=== PATIENT | female | born 1960 | race Caucasian/White ===

== ENCOUNTER 2016-10-08 10:21 | Inpatient (IN) | payer OTHER ==
[~2016-10-08] VITALS: Ht 160 cm; Wt 181.0 kg
[2016-10-08] VITALS (10 sets, daily range): BP systolic 64–153; BP diastolic 21–122
[2016-10-08 11:33] LABS: EOSINOPHIL (%) 2.3 % (0-5); EOSINOPHIL COUNT 0.2 K/uL (0-0.3); HEMATOCRIT 26.6 % (36.0-46.0); IMMATURE GRANULOCYTE (%) 0.5 % (0.0-0.7); INSTRUMENT ABS NEUTROPHIL CT 5.6 K/uL; LYMPHOCYTE COUNT 1.1 K/uL (1.0-2.8); MCH 29.8 PG (29.0-34.0); MCHC 29.3 G/DL (30.0-36.0); MCV 101.5 FL (83-99); MEAN PLAT.VOLUME 10.7 uM^3 (9.5-12.4); MONOCYTE (%) 7.4 % (3-12); MONOCYTE COUNT 0.6 K/uL (0-0.8); NEUTROPHIL (%) 74.6 % (45-76); NEUTROPHIL COUNT 5.6 K/uL (1.8-6.4); PLATELET COUNT 127 K/uL (156-360); RBC DIS.WIDTH-CV 16.8 % (11.8-14.6); RBC DIS.WIDTH-SD 62.4 % (39-53); RED BLOOD COUNT 2.62 M/uL (3.80-5.20); WHITE BLOOD COUNT 7.5 K/uL (4.1-10.2)
[2016-10-08 11:34] LABS: CARBON DIOXIDE (BICARBONATE) 18.9 MEQ/L (20-31)
[2016-10-08 11:42] LABS: CHLORIDE 104 mEq/L (99-109); SODIUM 134 mEq/L (136-147)
[2016-10-08 11:43] LABS: MAGNESIUM 2.5 mg/dL (1.3-2.7)
[2016-10-08 11:45] LABS: GLUCOSE 99 mg/dL (70-99)
[2016-10-08 11:46] LABS: ANION GAP 15 MEQ/L (2-14)
[2016-10-08 11:47] LABS: TOTAL BILIRUBIN 0.2 mg/dL (0.0-1.0)
[2016-10-08 11:48] LABS: ALKALINE PHOSPHATASE 68 IU/L (3-129)
[2016-10-08 11:49] LABS: GFR ESTIMATE (CALCULATED) 5 mL/min/
[2016-10-08 11:57] LABS: POTASSIUM 6.7 mEq/L (3.7-5.4); TROP-I INTERPRETATION NEGATIVE; TROPONIN-I 0.02 ng/mL (0.0-0.30)
[2016-10-08 12:00] LABS: BASE EXCESS -10.4 mEq/L (-3 to +3); BICARBONATE 18.7 mEq/L (22-26); CARBOXY HGB 1.7 % (0-5); METHEMOGLOBIN 1.4 % (0-1.5); PCO2 59 mm Hg (35-45); PO2 141 mm Hg (80-100)
[2016-10-08 12:01] LABS: COMMENTS - BLOOD GASES A+C+; DEVICE 840; FI02 40 %; MODE PSV; PEEP 5 CM/H20; PRES. SUPPORT 12 CM/H2O; SITE RRA; TOTAL RESP RATE 16 resp/min; pH 7.11 (7.35-7.45)
[2016-10-08 12:01] LABS: UREA NITROGEN (BUN) 152 mg/dL (9-23)
[2016-10-08] MEDS ORDERED: LEVOTHYROXINE175 MCG PO (13:05)
[2016-10-08] MEDS ORDERED: IRON325 M1 PO (13:08)
[2016-10-08] MEDS ORDERED: MULTI-VITAMIN1 EAC4 PO (13:08)
[2016-10-08] MEDS ORDERED: HEPARIN SO5000 UNITS SC (13:09)
[2016-10-08] MEDS ORDERED: LORAZEPAM0.5 MG PO ×2 (13:09→13:17)
[2016-10-08] MEDS ORDERED: EPOGEN,PRO20000 UNIT IV (13:10)
[2016-10-08] MEDS ORDERED: ALBUTEROL2.5 MG/3 M IH (13:11)
[2016-10-08] MEDS ORDERED: ATROVENT 00.5 MG/2.5 IH (13:11)
[2016-10-08] MEDS ORDERED: METOLAZONE2.5 MG PO (13:12)
[2016-10-08] MEDS ORDERED: CITALOPRAM HBR40 MG PO (13:12)
[2016-10-08] MEDS ORDERED: RANITIDINE HCL150 MG PO (13:13)
[2016-10-08] MEDS ORDERED: KLOR-CON 1010 ME1 PO (13:13)
[2016-10-08] MEDS ORDERED: GABAPENTIN100 MG PO ×2 (13:14→13:17)
[2016-10-08] MEDS ORDERED: LASIX40 MG PO (13:14)
[2016-10-08] MEDS ORDERED: DOCUSATE SODIU100 MG PO (13:14)
[2016-10-08] MEDS ORDERED: FOLIC ACID0.4 MG PO (13:14)
[2016-10-08] MEDS ORDERED: GUAIFENESIN400 MG PO (13:15)
[2016-10-08] MEDS ORDERED: FLORANEX CHE1 TABLET PO (13:15)
[2016-10-08] MEDS ORDERED: ACETAMINOPHEN325 M1 PO (13:16)
[2016-10-08] MEDS ORDERED: COUGH SYRU100 MG/5 M PO (13:17)
[2016-10-08] MEDS ORDERED: BENADRYL25 MG PO (13:18)
[2016-10-08] MEDS ORDERED: PROMETHAZINE HC25 M1 PO (13:18)
[2016-10-08] MEDS ORDERED: MILK OF MAGN PO (13:21)
[2016-10-08] MEDS ORDERED: FLEET ENEMA-AD118 ML PR (13:22)
[2016-10-08] MEDS ORDERED: DULCOLAX10 MG PR (13:22)
[2016-10-08 15:36] LABS: BASE EXCESS -9.7 mEq/L (-3 to +3); BICARBONATE 19.6 mEq/L (22-26); CARBOXY HGB 1.7 % (0-5); COMMENTS - BLOOD GASES C+; CONTINUOUS POS AIRWAY PRESSURE 5 cm H2O; DEVICE VENT; FI02 40 %; MODE SPON; PCO2 63 mm Hg (35-45); PO2 132 mm Hg (80-100); PRES. SUPPORT 12 CM/H2O; SITE LB; TOTAL RESP RATE 17 resp/min
[2016-10-08 18:42] LABS: METH RESISTANT S AUREUS PCR POSITIVE (NEGATIVE)
[2016-10-08 18:48] LABS: PROBE CHECK PASS
[2016-10-08 19:10] LABS: IRON 46 MCG/DL (35-150)
[2016-10-08 19:11] LABS: INTACT PARATHYROID HORMONE 291 pg/mL (10-69)
[2016-10-08 19:25] LABS: POINT-OF-CARE METER ID UU13113731
[2016-10-08 19:28] LABS: FERRITIN 186 NG/ML (10-291)
[2016-10-08 21:56] LABS: BASE EXCESS -2.4 mEq/L (-3 to +3); BICARBONATE 24.4 mEq/L (22-26); COMMENTS - BLOOD GASES C+; DEVICE VENTILATOR; FI02 50 %; MECHANICAL RATE 20 resp/min; METHEMOGLOBIN 1.7 % (0-1.5); MODE AC; PCO2 52 mm Hg (35-45); PEEP 5 CM/H20; PO2 130 mm Hg (80-100); SITE A-LINE; TIDAL VOLUME 410 ML; TOTAL RESP RATE 20 resp/min; pH 7.28 (7.35-7.45)
[2016-10-08 23:49] LABS: BASE EXCESS -1.7 mEq/L (-3 to +3); BICARBONATE 23.7 mEq/L (22-26); CARBOXY HGB 2.3 % (0-5); COMMENTS - BLOOD GASES C+; DEVICE VENTILATOR; FI02 40 %; MECHANICAL RATE 24 resp/min; METHEMOGLOBIN 1.7 % (0-1.5); MODE AC; PCO2 42 mm Hg (35-45); PO2 71 mm Hg (80-100); SITE A-LINE; TOTAL RESP RATE 25 resp/min; pH 7.36 (7.35-7.45)
[2016-10-08 23:50] LABS: INSPIRATION TIME 0.7 seconds; PEEP 5 CM/H20; TIDAL VOLUME 450 ML
[2016-10-09 01:23] LABS: POINT-OF-CARE METER ID UU13113731
[2016-10-09 02:00] VITALS: BP 126/54
[2016-10-09 02:32] LABS: ADD MIUA? YES; BILIRUBIN NEGATIVE; BLOOD MODERATE; COLOR AMBER ((YELLOW)); GLUCOSE (STRIP) NEGATIVE; KETONES NEGATIVE; LEUKOCYTES LARGE; NITRITE NEGATIVE; PROTEIN (STRIP) 100; SPECIFIC GRAVITY 1.011 (1.000-1.030); UROBILINOGEN 0.2 MG/DL (0.2-1.0)
[2016-10-09 02:44] LABS: BACTERIA RARE /HPF; EPITHELIAL CELLS RARE /HPF; HYALINE CASTS 15-20 /LPF; MUCUS TRACE /LPF; UCUL ADDED? YES; UNCLASSIFIED CASTS 0-5 /LPF; WHITE BLOOD CELLS TNTC /HPF (0-5)
[2016-10-09 04:00] VITALS: BP 102/73
[2016-10-09 05:14] LABS: POINT-OF-CARE METER ID UU13113731
[2016-10-09 05:48] LABS: ANION GAP 14 MEQ/L (2-14); CHLORIDE 101 MEQ/L (99-109); SAMPLE HEMOLYSIS CHECK 0; SAMPLE ICTERIC CHECK 0; SAMPLE LIPEMIA CHECK 0; SODIUM 136 MEQ/L (136-147); UREA NITROGEN (BUN) 99 mg/dL (9-23)
[2016-10-09 05:49] LABS: GFR ESTIMATE (CALCULATED) 8 mL/min/; GLUCOSE 167 mg/dL (70-99)
[2016-10-09 06:04] LABS: EOSINOPHIL (%) 0.1 % (0-5); HEMATOCRIT 23.5 % (36.0-46.0); IMMATURE GRANULOCYTE (%) 0.7 % (0.0-0.7); IMMATURE GRANULOCYTE COUNT 0.1 K/uL; INSTRUMENT ABS NEUTROPHIL CT 7.2 K/uL; LYMPHOCYTE COUNT 0.2 K/uL (1.0-2.8); MCH 29.8 PG (29.0-34.0); MCHC 31.5 G/DL (30.0-36.0); MCV 94.8 FL (83-99); MEAN PLAT.VOLUME 10.1 uM^3 (9.5-12.4); MONOCYTE (%) 0.8 % (3-12); MONOCYTE COUNT 0.1 K/uL (0-0.8); NEUTROPHIL (%) 96.1 % (45-76); NEUTROPHIL COUNT 7.2 K/uL (1.8-6.4); PLATELET COUNT 107 K/uL (156-360); RBC DIS.WIDTH-SD 55.6 % (39-53); RED BLOOD COUNT 2.48 M/uL (3.80-5.20); WHITE BLOOD COUNT 7.5 K/uL (4.1-10.2)
[2016-10-09 07:15] LABS: BASE EXCESS -1.7 mEq/L (-3 to +3); BICARBONATE 23.7 mEq/L (22-26); CARBOXY HGB 2.1 % (0-5); METHEMOGLOBIN 1.6 % (0-1.5); PCO2 42 mm Hg (35-45); PO2 65 mm Hg (80-100); pH 7.36 (7.35-7.45)
[2016-10-09 07:17] LABS: COMMENTS - BLOOD GASES NAC+; DEVICE PB 840 VENT; FI02 40 %; MECHANICAL RATE 24 resp/min; MODE AC; PEEP 5 CM/H20; SITE ALINE; TIDAL VOLUME 450 ML; TOTAL RESP RATE 24 resp/min
[2016-10-09 08:47] LABS: AHBS INDEX 0; HBSG INDEX 0.14; HEPATITIS B SURFACE ANTIBODY Nonreactive; HPCA INDEX 0.12
[2016-10-09 08:48] LABS: ANTI-HEPATITIS B CORE (IGM) Nonreactive; HBC IgM INDEX 0.45
[2016-10-09 12:00] VITALS: BP 117/46
[2016-10-09 13:24] LABS: POINT-OF-CARE METER ID UU13113731
[2016-10-09 17:24] LABS: POINT-OF-CARE METER ID UU13113731
[2016-10-10 01:13] LABS: POINT-OF-CARE METER ID UU13113731
[2016-10-10 06:06] LABS: EOSINOPHIL (%) 0.1 % (0-5); HEMATOCRIT 22.6 % (36.0-46.0); IMMATURE GRANULOCYTE (%) 0.7 % (0.0-0.7); IMMATURE GRANULOCYTE COUNT 0.1 K/uL; INSTRUMENT ABS NEUTROPHIL CT 5.4 K/uL; LYMPHOCYTE COUNT 0.7 K/uL (1.0-2.8); MCH 29.7 PG (29.0-34.0); MCHC 31.4 G/DL (30.0-36.0); MCV 94.6 FL (83-99); MEAN PLAT.VOLUME 10.4 uM^3 (9.5-12.4); MONOCYTE (%) 10.7 % (3-12); MONOCYTE COUNT 0.7 K/uL (0-0.8); NEUTROPHIL COUNT 5.4 K/uL (1.8-6.4); PLATELET COUNT 123 K/uL (156-360); RBC DIS.WIDTH-CV 16.2 % (11.8-14.6); RBC DIS.WIDTH-SD 55.9 % (39-53); RED BLOOD COUNT 2.39 M/uL (3.80-5.20); WHITE BLOOD COUNT 6.9 K/uL (4.1-10.2)
[2016-10-10 06:31] LABS: ANION GAP 12 MEQ/L (2-14); CHLORIDE 101 MEQ/L (99-109); GFR ESTIMATE (CALCULATED) 11 mL/min/; GLUCOSE 88 mg/dL (70-99); MAGNESIUM 1.9 mg/dl (1.3-2.7); POTASSIUM 3.8 MEQ/L (3.7-5.4); SAMPLE HEMOLYSIS CHECK 0; SAMPLE ICTERIC CHECK 0; SAMPLE LIPEMIA CHECK 0; SODIUM 139 MEQ/L (136-147); UREA NITROGEN (BUN) 69 mg/dL (9-23)
[2016-10-10 08:00] VITALS: BP 110/38
[2016-10-10 08:45] LABS: CARBOXY HGB 1.8 % (0-5); METHEMOGLOBIN 1.5 % (0-1.5); PCO2 40 mm Hg (35-45); PO2 72 mm Hg (80-100)
[2016-10-10 08:46] LABS: BICARBONATE 29.1 mEq/L (22-26); COMMENTS - BLOOD GASES A+C+; DEVICE 840; FI02 30 %; MECHANICAL RATE 24 resp/min; MODE A/C; PEEP 5 CM/H20; SITE RR; TIDAL VOLUME 450 ML; TOTAL RESP RATE 24 resp/min; pH 7.47 (7.35-7.45)
[2016-10-10 11:02] LABS: BASE EXCESS 3.1 mEq/L (-3 to +3); BICARBONATE 28.9 mEq/L (22-26); CARBOXY HGB 1.7 % (0-5); COMMENTS - BLOOD GASES A+C+; DEVICE 840; FI02 30 %; METHEMOGLOBIN 1.5 % (0-1.5); MODE TC; PCO2 50 mm Hg (35-45); PO2 106 mm Hg (80-100); SITE RR; TOTAL RESP RATE 30 resp/min; pH 7.37 (7.35-7.45)
[2016-10-10 11:03] LABS: PEEP 5 CM/H20
[2016-10-10 12:00] VITALS: BP 103/50
[2016-10-10 16:00] VITALS: BP 119/51
[2016-10-10 17:57] LABS: POINT-OF-CARE METER ID UU14174217
[2016-10-10 20:00] VITALS: BP 114/42
[2016-10-11] VITALS (16 sets, daily range): BP systolic 87–137; BP diastolic 31–58
[2016-10-11 05:26] LABS: BASE EXCESS 3.2 mEq/L (-3 to +3); BICARBONATE 28.5 mEq/L (22-26); CARBOXY HGB 2.4 % (0-5); COMMENTS - BLOOD GASES A+C+; DEVICE 840; FI02 30 %; METHEMOGLOBIN 1.5 % (0-1.5); MODE SPONT; PCO2 47 mm Hg (35-45); PEEP 5 CM/H20; PO2 77 mm Hg (80-100); PRES. SUPPORT 10 CM/H2O; SITE RR; TOTAL RESP RATE 16 resp/min; pH 7.39 (7.35-7.45)
[2016-10-11 07:07] LABS: ANION GAP 11 MEQ/L (2-14); CHLORIDE 103 MEQ/L (99-109); GFR ESTIMATE (CALCULATED) 10 mL/min/; GLUCOSE 89 mg/dL (70-99); MAGNESIUM 1.8 mg/dl (1.3-2.7); POTASSIUM 3.8 MEQ/L (3.7-5.4); SAMPLE HEMOLYSIS CHECK 0; SAMPLE ICTERIC CHECK 0; SAMPLE LIPEMIA CHECK 0; SODIUM 141 MEQ/L (136-147); UREA NITROGEN (BUN) 74 mg/dL (9-23)
[2016-10-11 07:15] LABS: EOSINOPHIL (%) 2.8 % (0-5); EOSINOPHIL COUNT 0.1 K/uL (0-0.3); IMMATURE GRANULOCYTE (%) 0.4 % (0.0-0.7); INSTRUMENT ABS NEUTROPHIL CT 3.4 K/uL; LYMPHOCYTE COUNT 0.6 K/uL (1.0-2.8); MCH 29.9 PG (29.0-34.0); MCHC 30.5 G/DL (30.0-36.0); MCV 98.2 FL (83-99); MEAN PLAT.VOLUME 9.6 uM^3 (9.5-12.4); MONOCYTE (%) 11.9 % (3-12); MONOCYTE COUNT 0.6 K/uL (0-0.8); NEUTROPHIL (%) 72.8 % (45-76); NEUTROPHIL COUNT 3.4 K/uL (1.8-6.4); PLATELET COUNT 99 K/uL (156-360); RBC DIS.WIDTH-CV 16.7 % (11.8-14.6); RBC DIS.WIDTH-SD 59.9 % (39-53); RED BLOOD COUNT 2.24 M/uL (3.80-5.20)
[2016-10-11 07:16] LABS: WHITE BLOOD COUNT 4.6 K/uL (4.1-10.2)
[2016-10-12] VITALS (8 sets, daily range): BP systolic 115–155; BP diastolic 42–63
[2016-10-12 05:56] LABS: EOSINOPHIL (%) 4.8 % (0-5); EOSINOPHIL COUNT 0.3 K/uL (0-0.3); IMMATURE GRANULOCYTE (%) 0.6 % (0.0-0.7); INSTRUMENT ABS NEUTROPHIL CT 3.8 K/uL; LYMPHOCYTE COUNT 0.6 K/uL (1.0-2.8); MCH 28.6 PG (29.0-34.0); MCHC 29.6 G/DL (30.0-36.0); MCV 96.7 FL (83-99); MEAN PLAT.VOLUME 9.9 uM^3 (9.5-12.4); MONOCYTE COUNT 0.6 K/uL (0-0.8); NEUTROPHIL (%) 72.7 % (45-76); NEUTROPHIL COUNT 3.8 K/uL (1.8-6.4); PLATELET COUNT 110 K/uL (156-360); RBC DIS.WIDTH-CV 17.4 % (11.8-14.6); RBC DIS.WIDTH-SD 61.1 % (39-53); WHITE BLOOD COUNT 5.2 K/uL (4.1-10.2)
[2016-10-12 06:19] LABS: RED BLOOD COUNT 2.69 M/uL (3.80-5.20)
[2016-10-12 06:20] LABS: ANION GAP 9 MEQ/L (2-14); CHLORIDE 102 MEQ/L (99-109); GFR ESTIMATE (CALCULATED) 15 mL/min/; GLUCOSE 83 mg/dL (70-99); MAGNESIUM 1.8 mg/dl (1.3-2.7); POTASSIUM 3.8 MEQ/L (3.7-5.4); SAMPLE HEMOLYSIS CHECK 0; SAMPLE ICTERIC CHECK 0; SAMPLE LIPEMIA CHECK 0; SODIUM 138 MEQ/L (136-147)
[2016-10-12 06:21] LABS: UREA NITROGEN (BUN) 36 mg/dL (9-23)
[2016-10-12 18:23] LABS: C DIFF TOXIN POSITIVE (NEGATIVE)
[2016-10-12 18:42] LABS: PROBE CHECK PASS
[2016-10-13] VITALS (7 sets, daily range): BP systolic 122–159; BP diastolic 41–61
[2016-10-13 05:17] LABS: POINT-OF-CARE METER ID UU13113803
[2016-10-13 05:49] LABS: EOSINOPHIL (%) 4.7 % (0-5); EOSINOPHIL COUNT 0.3 K/uL (0-0.3); HEMATOCRIT 26.8 % (36.0-46.0); IMMATURE GRANULOCYTE (%) 0.7 % (0.0-0.7); INSTRUMENT ABS NEUTROPHIL CT 4.2 K/uL; LYMPHOCYTE COUNT 0.7 K/uL (1.0-2.8); MCHC 29.5 G/DL (30.0-36.0); MCV 98.5 FL (83-99); MEAN PLAT.VOLUME 9.7 uM^3 (9.5-12.4); MONOCYTE (%) 9.9 % (3-12); MONOCYTE COUNT 0.6 K/uL (0-0.8); NEUTROPHIL (%) 72.8 % (45-76); NEUTROPHIL COUNT 4.2 K/uL (1.8-6.4); PLATELET COUNT 122 K/uL (156-360); RBC DIS.WIDTH-SD 61.5 % (39-53); RED BLOOD COUNT 2.72 M/uL (3.80-5.20); WHITE BLOOD COUNT 5.8 K/uL (4.1-10.2)
[2016-10-13 06:15] LABS: ANION GAP 11 MEQ/L (2-14); CHLORIDE 103 MEQ/L (99-109); GFR ESTIMATE (CALCULATED) 14 mL/min/; GLUCOSE 77 mg/dL (70-99); MAGNESIUM 1.9 mg/dl (1.3-2.7); POTASSIUM 3.8 MEQ/L (3.7-5.4); SAMPLE HEMOLYSIS CHECK 0; SAMPLE ICTERIC CHECK 0; SAMPLE LIPEMIA CHECK 0; SODIUM 140 MEQ/L (136-147); UREA NITROGEN (BUN) 37 mg/dL (9-23)
[2016-10-13 12:37] LABS: POINT-OF-CARE METER ID UU13113803
[2016-10-13 17:32] LABS: POINT-OF-CARE METER ID UU13113803
[2016-10-14] VITALS: BP 124/53
[2016-10-14 00:11] LABS: POINT-OF-CARE METER ID UU13113803
[2016-10-14 04:00] VITALS: BP 116/39
[2016-10-14 05:25] LABS: POINT-OF-CARE METER ID UU14162636
[2016-10-14 05:52] LABS: EOSINOPHIL (%) 5.1 % (0-5); EOSINOPHIL COUNT 0.2 K/uL (0-0.3); HEMATOCRIT 26.3 % (36.0-46.0); IMMATURE GRANULOCYTE (%) 0.6 % (0.0-0.7); INSTRUMENT ABS NEUTROPHIL CT 3.4 K/uL; LYMPHOCYTE COUNT 0.6 K/uL (1.0-2.8); MCH 29.2 PG (29.0-34.0); MCHC 29.7 G/DL (30.0-36.0); MCV 98.5 FL (83-99); MEAN PLAT.VOLUME 9.5 uM^3 (9.5-12.4); MONOCYTE (%) 9.1 % (3-12); MONOCYTE COUNT 0.4 K/uL (0-0.8); NEUTROPHIL (%) 72.9 % (45-76); NEUTROPHIL COUNT 3.4 K/uL (1.8-6.4); PLATELET COUNT 114 K/uL (156-360); RBC DIS.WIDTH-CV 16.4 % (11.8-14.6); RBC DIS.WIDTH-SD 59.7 % (39-53); RED BLOOD COUNT 2.67 M/uL (3.80-5.20); WHITE BLOOD COUNT 4.7 K/uL (4.1-10.2)
[2016-10-14 06:16] LABS: ANION GAP 9 MEQ/L (2-14); CHLORIDE 106 MEQ/L (99-109); GFR ESTIMATE (CALCULATED) 14 mL/min/; GLUCOSE 83 mg/dL (70-99); MAGNESIUM 1.9 mg/dl (1.3-2.7); SAMPLE HEMOLYSIS CHECK 0; SAMPLE ICTERIC CHECK 0; SAMPLE LIPEMIA CHECK 0; SODIUM 142 MEQ/L (136-147); UREA NITROGEN (BUN) 40 mg/dL (9-23)
[2016-10-14 08:00] VITALS: BP 143/51
[2016-10-14 12:00] VITALS: BP 152/72
[2016-10-14 12:31] LABS: POINT-OF-CARE METER ID UU13113731
[2016-10-14 16:00] VITALS: BP 143/54
[2016-10-14 17:25] LABS: POINT-OF-CARE METER ID UU14162636
[2016-10-14 20:00] VITALS: BP 146/56
[2016-10-14 23:26] LABS: POINT-OF-CARE METER ID UU14162636
[2016-10-15] VITALS: BP 140/51
[2016-10-15 04:00] VITALS: BP 128/54
[2016-10-15 05:20] LABS: POINT-OF-CARE METER ID UU14174217
[2016-10-15 05:44] LABS: EOSINOPHIL (%) 5.3 % (0-5); EOSINOPHIL COUNT 0.3 K/uL (0-0.3); IMMATURE GRANULOCYTE (%) 0.8 % (0.0-0.7); INSTRUMENT ABS NEUTROPHIL CT 3.8 K/uL; LYMPHOCYTE COUNT 0.7 K/uL (1.0-2.8); MCH 28.5 PG (29.0-34.0); MCHC 29.2 G/DL (30.0-36.0); MCV 97.4 FL (83-99); MEAN PLAT.VOLUME 9.4 uM^3 (9.5-12.4); MONOCYTE (%) 9.6 % (3-12); MONOCYTE COUNT 0.5 K/uL (0-0.8); NEUTROPHIL (%) 71.1 % (45-76); NEUTROPHIL COUNT 3.8 K/uL (1.8-6.4); PLATELET COUNT 126 K/uL (156-360); RBC DIS.WIDTH-CV 16.3 % (11.8-14.6); RBC DIS.WIDTH-SD 58.4 % (39-53); RED BLOOD COUNT 2.67 M/uL (3.80-5.20); WHITE BLOOD COUNT 5.3 K/uL (4.1-10.2)
[2016-10-15 05:58] LABS: ANION GAP 8 MEQ/L (2-14); CHLORIDE 105 MEQ/L (99-109); GFR ESTIMATE (CALCULATED) 15 mL/min/; GLUCOSE 87 mg/dL (70-99); MAGNESIUM 1.7 mg/dl (1.3-2.7); SAMPLE HEMOLYSIS CHECK 0; SAMPLE ICTERIC CHECK 0; SAMPLE LIPEMIA CHECK 0; SODIUM 142 MEQ/L (136-147); UREA NITROGEN (BUN) 42 mg/dL (9-23)
[2016-10-15 08:00] VITALS: BP 136/62
[2016-10-15 12:00] VITALS: BP 156/70
[2016-10-15 12:16] LABS: POINT-OF-CARE METER ID UU14174217
[2016-10-15 16:00] VITALS: BP 122/55
[2016-10-15 18:26] LABS: POINT-OF-CARE METER ID UU13113803
[2016-10-15 20:00] VITALS: BP 143/62
[2016-10-16] VITALS: BP 133/59
[2016-10-16 00:33] LABS: POINT-OF-CARE METER ID UU13113803
[2016-10-16 04:00] VITALS: BP 133/54
[2016-10-16 05:20] LABS: POINT-OF-CARE METER ID UU14174217
[2016-10-16 06:10] LABS: ANION GAP 7 MEQ/L (2-14); CHLORIDE 106 MEQ/L (99-109); GFR ESTIMATE (CALCULATED) 17 mL/min/; GLUCOSE 90 mg/dL (70-99); MAGNESIUM 1.7 mg/dl (1.3-2.7); SAMPLE HEMOLYSIS CHECK 0; SAMPLE ICTERIC CHECK 0; SAMPLE LIPEMIA CHECK 0; SODIUM 142 MEQ/L (136-147); UREA NITROGEN (BUN) 39 mg/dL (9-23)
[2016-10-16 08:00] VITALS: BP 139/49
[2016-10-16 12:00] VITALS: BP 150/55
[2016-10-16 13:14] LABS: POINT-OF-CARE METER ID UU14174217
[2016-10-16] MEDS ORDERED: RENVELA800 MG PO (13:31)
[2016-10-16] MEDS ORDERED: CALCITRIOL0.25 MCG PO (13:32)
[2016-10-16] MEDS ORDERED: NOVOLOG PE100 UNITS/ SC (13:32)
[2016-10-16] MEDS ORDERED: LORAZEPAM0.5 MG PO (13:33)
[2016-10-16] MEDS ORDERED: VANCOMYCIN HCL125 MG PO (13:44)
== END 2016-10-16 14:56 | DRG 682 ==
LOC: EME 10:21 → EDBD 10:21 → EDOF 14:05 → 4WEST 14:05 → EDOF 15:58 → 4WEST 16:53
PROVIDERS: Emergency Medicine; Family Medicine; Internal Medicine Nephrology; Internal Medicine Pulmonary Disease; Obstetrics & Gynecology
PROC: 03HY32Z Insertion of Monitoring Device into Upper Artery, Percutaneous Approach (ICD-10-PCS; principal; 2016-10-08)
PROC: 05HM33Z Insertion of Infusion Device into Right Internal Jugular Vein, Percutaneous Approach (ICD-10-PCS; principal; 2016-10-08)
PROC: 5A1955Z Respiratory Ventilation, Greater than 96 Consecutive Hours (ICD-10-PCS; principal; 2016-10-08)
PROC: 5A1D60Z (ICD-10-PCS; principal; 2016-10-08)
PROC: 30233N1 Transfusion of Nonautologous Red Blood Cells into Peripheral Vein, Percutaneous Approach (ICD-10-PCS; 2016-10-11)
DX: N17.0 Acute kidney failure with tubular necrosis (principal); J96.21 Acute and chronic respiratory failure with hypoxia; R57.9 Shock, unspecified; Z99.11 Dependence on respirator [ventilator] status; E87.4 Mixed disorder of acid-base balance; I48.2 Chronic atrial fibrillation; Z93.0 Tracheostomy status; A04.7 Enterocolitis due to Clostridium difficile; E86.0 Dehydration; R00.1 Bradycardia, unspecified; J96.12 Chronic respiratory failure with hypercapnia; I89.0 Lymphedema, not elsewhere classified; E66.01 Morbid (severe) obesity due to excess calories; D63.8 Anemia in other chronic diseases classified elsewhere; I49.8 Other specified cardiac arrhythmias; G47.33 Obstructive sleep apnea (adult) (pediatric); E87.5 Hyperkalemia; Z86.718 Personal history of other venous thrombosis and embolism; G89.29 Other chronic pain; E03.9 Hypothyroidism, unspecified; M19.90 Unspecified osteoarthritis, unspecified site; D50.9 Iron deficiency anemia, unspecified; Z68.45 Body mass index [BMI] 70 or greater, adult; N18.4 Chronic kidney disease, stage 4 (severe); I27.2 Other secondary pulmonary hypertension; Z74.01 Bed confinement status; I12.9 Hypertensive chronic kidney disease with stage 1 through stage 4 chronic kidney disease, or unspecified chronic kidney disease; E83.39 Other disorders of phosphorus metabolism; J44.9 Chronic obstructive pulmonary disease, unspecified; L03.90 Cellulitis, unspecified; R41.82 Altered mental status, unspecified; R73.9 Hyperglycemia, unspecified
CPT/HCPCS: 36600; 36620; 71010; 80048; 80053; 81003; 82728; 82803; 82948; 83540; 83605; 83735; 83880; 83970; 84100; 84466; 84484; 85025; 86705; 86706; 86803; 86850; 86860; 86870; 86880; 86900; 86901; 86905; 86920; 87070; 87077; 87081; 87086; 87186; 87205; 87340; 87493; 87641; 92526 GN; 92610 GN; 93306; 94002; 94003; 94640; 94640 76; 94799; 99202; 99281; 99285; C1752; J0610; J0881; J1644; J1815; J2405; J2543; J2930; J7030; J7050; P9016; P9047; S0028